=== PATIENT | male | born 1955 | race Hispanic/Latino ===

== ENCOUNTER → 2018-04-01 | Outpatient (CLI) | payer OTHER ==
[~2018-04-01] MED LIST: AEC81 PO; AMLO5TAB7 PO; CLON0.5T12 PO; CLOP75TA32 PO; HYDR-3830 PO; HYDR500C2 PO; IOHEXOL 350 MG/ML 100ML INFUS..BTL IV ONE; IOHEXOL-350 50ML VIAL IV ONE; LEVO25TA54 PO; METF-444 PO; PARO-37 PO; PROP10TA10 PO; TELM1TAB6 PO; TERB250T51 PO
== END | disposition home or self-care (01) ==
LOC: OIH 07:55
PROVIDERS: ATTEND Internal Medicine Cardiovascular Disease
DX: K57.90 Diverticulosis of intestine, part unspecified, without perforation or abscess without bleeding (principal); I70.1 Atherosclerosis of renal artery; I73.9 Peripheral vascular disease, unspecified; N32.89 Other specified disorders of bladder; M47.895 Other spondylosis, thoracolumbar region; I25.10 Atherosclerotic heart disease of native coronary artery without angina pectoris; Z89.512 Acquired absence of left leg below knee
CPT/HCPCS: 75635; Q9967 ×2

== ENCOUNTER 2018-04-12 06:21 | Day surgery (SDC) | payer OTHER ==
[2018-04-08 09:38] LABS: EOSINOPHILS % (AUTO) 2.9 % (0.0-8.0); HEMATOCRIT 28.5 % (42-54); LYMPHOCYTES % (AUTO) 21.8 % (21.0-51.0); MEAN CORPUSCULAR HEMOGLOBIN 45.5 pg (27.0-33.0); MEAN CORPUSCULAR HGB CONC 34.5 g/dL (32.0-36.0); MEAN CORPUSCULAR VOLUME 131.8 fL (79-99); NEUTROPHILS % (AUTO) 63.3 % (40.0-77.0); NUCLEATED RED BLOOD CELLS 0.2 % (0.0-0.19); PLATELET COUNT (AUTO) 269 K/uL (130-400); RED BLOOD CELL COUNT(AUTO) 2.16 MIL/uL (4.50-6.20); RED CELL DISTRIBUTION WIDTH 16.2 % (11.0-15.5); WHITE BLOOD COUNT (AUTO) 6.1 K/uL (4.8-10.8)
[2018-04-08 09:50] LABS: INR 0.98 (0.85-1.15); PARTIAL THROMBOPLASTIN TIME 28.9 SEC (26.3-35.5); PROTHROMBIN TIME 10.3 SEC (9.6-11.6)
[2018-04-08 09:51] VITALS: BP 85/62
[2018-04-08 11:30] LABS: APPEARANCE,URINE Turbid (CLEAR); BILIRUBIN,URINE Negative (NEGATIVE); COLOR,URINE Yellow (YELLOW); GLUCOSE, URINE (UA) Negative (NEGATIVE); KETONES,URINE Trace mg/dL (NEGATIVE); LEUKOCYTE ESTERASE ,URINE Moderate (NEGATIVE); NITRATE,URINE Negative (NEGATIVE); OCCULT BLOOD,URINE Negative (NEGATIVE); PROTEIN,URINE POS 1+ (NEGATIVE)
[2018-04-08 11:41] LABS: BACTERIA,URINE Few /HPF (None Seen); HYALINE CASTS, URINE 0-1 /LPF (0-1 /LPF); MUCUS,URINE Few LPF (None Seen); RBC,URINE None Seen /HPF (0-1); SQUAMOUS EPITHELIAL CELL,UR Few /HPF (0-2)
[2018-04-08 11:42] LABS: OTHER CASTS, URINE FATTY CASTS 1+ /LPF (None Seen)
[~2018-04-12] VITALS: Ht 165.1 cm; Wt 65.8 kg
[2018-04-12] VITALS (21 sets, daily range): BP systolic 104–160; BP diastolic 31–54
[~2018-04-12 06:21] MED LIST changes: -AMLO5TAB7 PO; +ATOR40TA69 PO; +CHOL500050 PO; +FERR325T22 PO; -HYDR-3830 PO; -IOHEXOL 350 MG/ML 100ML INFUS..BTL IV ONE; -IOHEXOL-350 50ML VIAL IV ONE; +METH-425 PO; +PRED2.5T PO; +PREG50 PO; -TERB250T51 PO
[2018-04-12] MEDS ORDERED: SODIUM CHLORIDE 0.9% 1000ML 1,000 ML IV ONE (08:08)
[2018-04-12] MEDS ORDERED: NITROGLYCERIN 5 MG/ML 10 ML VIAL IV ONE (09:08)
[2018-04-12] MEDS ORDERED: HEPARIN SODIUM 1000UNIT/ML 10ML VIAL ONE (09:08)
[2018-04-12] MEDS ORDERED: IODIXANOL 320 MG/ML 100 ML VIAL ONE (09:08)
[2018-04-12] MEDS ORDERED: LIDOCAINE HCL-MPF 2% 5ML VIAL ONE (09:08)
[2018-04-12] MEDS ORDERED: MIDAZOLAM HCL 1 MG/ML 2ML VIAL ONE (09:09)
[2018-04-12] MEDS ORDERED: FENTANYL CITRATE PF 50 MCG/1 ML 2ML VIAL ONE (09:09)
[2018-04-12] MEDS ORDERED: SODIUM CHLORIDE 0.9% 1000ML 1,000 ML IV SCH (10:41)
[2018-04-12] MEDS ORDERED: PROTAMINE SULFATE 10 MG/ML 25ML VIAL IV ONE (10:44)
[2018-04-12] MEDS ORDERED: DEXTROSE 50%-WATER 50 ML DISP.SYRIN IV PRN (10:45)
[2018-04-12] MEDS ORDERED: GLUCAGON 1MG KIT 1 MG ML IM PRN (10:45)
[2018-04-12] MEDS ORDERED: HYDRALAZINE HCL 20 MG/ML VIAL IV PRN (10:45)
[2018-04-12] MEDS ORDERED: INSULIN HUMULIN R 100 UNIT/ML 3ML SQ SCH (11:30)
== END 2018-04-12 15:30 | disposition home or self-care (01) ==
LOC: DAH 06:21
PROVIDERS: ATTEND Internal Medicine Cardiovascular Disease
DX: I70.211 Atherosclerosis of native arteries of extremities with intermittent claudication, right leg (principal); Z98.890 Other specified postprocedural states; Z95.5 Presence of coronary angioplasty implant and graft; I10 Essential (primary) hypertension; E11.9 Type 2 diabetes mellitus without complications; E03.9 Hypothyroidism, unspecified; G62.9 Polyneuropathy, unspecified; E11.621 Type 2 diabetes mellitus with foot ulcer; L97.419 Non-pressure chronic ulcer of right heel and midfoot with unspecified severity; L97.519 Non-pressure chronic ulcer of other part of right foot with unspecified severity; Z79.899 Other long term (current) drug therapy; Z79.84 Long term (current) use of oral hypoglycemic drugs
CPT/HCPCS: 36415 ×2; 37226; 75625; 75710; 75774; 80048; 81001; 82948 ×3; 85025; 85347; 85610; 85730; A4606; C1725; C1769 ×2; C1874; C1887; C1893; C1894 ×2; J1644 ×2; J2250; J2720; J3010; J3490 ×2; J7030; Q9967; 99156; 99157

== ENCOUNTER 2020-12-26 06:09 | Day surgery (SDC) | payer MEDICARE ==
[2020-12-24 13:20] LABS: BASOPHILS % (AUTO) 0.9 % (0.0-5.0); EOSINOPHILS % (AUTO) 16.2 % (0.0-8.0); HEMATOCRIT 33.6 % (42-54); LYMPHOCYTES % (AUTO) 15.6 % (21.0-51.0); MEAN CORPUSCULAR HEMOGLOBIN 37.7 pg (27.0-33.0); MEAN CORPUSCULAR HGB CONC 32.7 g/dL (32.0-36.0); MEAN CORPUSCULAR VOLUME 115.1 fL (79-99); MONOCYTES % (AUTO) 8.4 % (3.0-13.0); NEUTROPHILS % (AUTO) 58.6 % (40.0-77.0); PLATELET COUNT (AUTO) 236 K/uL (130-400); RED BLOOD CELL COUNT(AUTO) 2.92 MIL/uL (4.50-6.20); WHITE BLOOD COUNT (AUTO) 7.9 K/uL (4.8-10.8)
[2020-12-24 13:31] LABS: CREATININE 1.1 mg/dL (0.5-1.5); POTASSIUM 4.2 mmol/L (3.5-5.1)
[2020-12-24 13:33] LABS: INR 0.98 (0.85-1.15); PROTHROMBIN TIME 10.7 SEC (9.6-11.6)
[2020-12-24 13:34] LABS: PARTIAL THROMBOPLASTIN TIME 26.8 SEC (26.3-35.5)
[2020-12-24 13:49] LABS: APPEARANCE,URINE Clear (CLEAR); BILIRUBIN,URINE Negative (NEGATIVE); COLOR,URINE Yellow (YELLOW); GLUCOSE, URINE (UA) Negative (NEGATIVE); KETONES,URINE Negative (NEGATIVE); LEUKOCYTE ESTERASE ,URINE Negative (NEGATIVE); NITRATE,URINE Negative (NEGATIVE); OCCULT BLOOD,URINE Negative (NEGATIVE); PROTEIN,URINE Negative (NEGATIVE); UROBILINOGEN,URINE 0.2 mg/dL (0.2-1.0)
[2020-12-25 10:23] VITALS: BP 103/49
[~2020-12-26] VITALS: Ht 165.1 cm; Wt 60.9 kg
[2020-12-26] VITALS (13 sets, daily range): BP systolic 91–145; BP diastolic 31–51
[~2020-12-26 06:09] MED LIST changes: -AEC81 PO; -CHOL500050 PO; -CLON0.5T12 PO; +CLON0.5T4 PO; +CYAN100T45 PO; +DOCU100T9 PO; -METF-444 PO; -METH-425 PO; -PRED2.5T PO; -PROP10TA10 PO; +TRAM50TA4 PO
[2020-12-26] MEDS ORDERED: 0.9%NACL 1000ML 1,000 ML IV ONE (06:26)
[2020-12-26] MEDS ORDERED: HEPARIN 1,000 UNIT VIAL ONE (07:20)
[2020-12-26] MEDS ORDERED: IOHEXOL-350 50ML VIAL IV ONE (07:20)
[2020-12-26] MEDS ORDERED: HEPARIN 10,000 UNIT/10ML (1,000 UNIT/ML) VIAL ONE (07:20)
[2020-12-26] MEDS ORDERED: IOHEXOL 350 MG/ML 100ML INFUS..BTL IV ONE (07:20)
[2020-12-26] MEDS ORDERED: LIDOCAINE HCL 400MG/20ML VIAL ONE (07:21)
[2020-12-26] MEDS ORDERED: 0.9%NACL 10ML VIAL IVP SCH (09:00)
== END 2020-12-26 17:50 | disposition home or self-care (01) ==
LOC: DAH 06:09
PROVIDERS: ATTEND Internal Medicine Cardiovascular Disease
DX: I35.0 Nonrheumatic aortic (valve) stenosis (principal); I20.9 Angina pectoris, unspecified; E78.00 Pure hypercholesterolemia, unspecified; Z79.01 Long term (current) use of anticoagulants; Z83.3 Family history of diabetes mellitus; Z79.899 Other long term (current) drug therapy
CPT/HCPCS: 36415; 71045; 80048; 81003; 85025; 85610; 85730; 93005; 93306; 93356; 93460; 93880; 94010; A4215; A4216; A4221; A4222; A4223 ×3; A4606; A4663; C1769 ×2; C1894 ×4; J1644 ×2; J3490; J7030; Q9965; Q9967 ×2

== ENCOUNTER → 2021-01-03 | Outpatient (CLI) | payer OTHER, MEDICARE ==
[~2021-01-03] VITALS: Ht 165.1 cm; Wt 59.9 kg
[~2021-01-03] MED LIST changes: +CEFAZOLIN SODIUM 1 GM VIAL IVP ONE; +DIPH25CA53 PO; +VITAMIN B12 PO
[2021-01-03 15:07] LABS: BASOPHILS % (AUTO) 1.6 % (0.0-5.0); EOSINOPHILS % (AUTO) 16.8 % (0.0-8.0); HEMATOCRIT 32.1 % (42-54); LYMPHOCYTES % (AUTO) 22.8 % (21.0-51.0); MEAN CORPUSCULAR HEMOGLOBIN 37.7 pg (27.0-33.0); MEAN CORPUSCULAR VOLUME 114.2 fL (79-99); MONOCYTES % (AUTO) 5.9 % (3.0-13.0); NEUTROPHILS % (AUTO) 52.8 % (40.0-77.0); PLATELET COUNT (AUTO) 259 K/uL (130-400); RED BLOOD CELL COUNT(AUTO) 2.81 MIL/uL (4.50-6.20); RED CELL DISTRIBUTION WIDTH 12.4 % (11.0-15.5); WHITE BLOOD COUNT (AUTO) 6.8 K/uL (4.8-10.8)
[2021-01-03 15:19] LABS: HEMOGLOBIN A1C 4.5 % (4.0-6.0)
[2021-01-03 15:22] LABS: ALBUMIN 3.2 g/dL (3.5-5.0); BILIRUBIN,TOTAL 0.2 mg/dL (0.2-1.0); CREATININE 1.1 mg/dL (0.5-1.5); POTASSIUM 3.7 mmol/L (3.5-5.1)
[2021-01-03 15:23] LABS: PROTHROMBIN TIME 10.9 SEC (9.6-11.6)
[2021-01-03 15:24] LABS: PARTIAL THROMBOPLASTIN TIME 26.6 SEC (26.3-35.5)
[2021-01-09 08:59] VITALS: BP 93/40
== END | disposition home or self-care (01) ==
LOC: DAH 10:00 → EDSTATUS 13:00
PROVIDERS: ATTEND Thoracic Surgery (Cardiothoracic Vascular Surgery)
DX: I35.0 Nonrheumatic aortic (valve) stenosis (principal); R00.1 Bradycardia, unspecified; Z20.822 Contact with and (suspected) exposure to COVID-19; Z79.899 Other long term (current) drug therapy; Z79.01 Long term (current) use of anticoagulants
CPT/HCPCS: 36415; 71046; 80053; 80061; 83036; 85025; 85610; 85730; 86850; 86900; 86901; 87635; 93005

== ENCOUNTER 2021-10-29 11:59 | Inpatient (IN) | payer OTHER, MEDICARE ==
[~2021-10-29] VITALS: Ht 160 cm; Wt 59.0 kg
[2021-10-29] MEDS: 0.9%NACL 1000ML 1,000 ML IV SCH (05:35)
[~2021-10-29 11:59] MED LIST changes: -CEFAZOLIN SODIUM 1 GM VIAL IVP ONE; -CYAN100T45 PO
[2021-10-29 12:47] LABS: BASOPHILS % (AUTO) 0.1 % (0.0-5.0); HEMATOCRIT 26.3 % (42-54); LYMPHOCYTES % (AUTO) 14.9 % (21.0-51.0); MEAN CORPUSCULAR HEMOGLOBIN 38.2 pg (27.0-33.0); MEAN CORPUSCULAR HGB CONC 31.6 g/dL (32.0-36.0); MEAN CORPUSCULAR VOLUME 121.2 fL (79-99); NEUTROPHILS % (AUTO) 77.1 % (40.0-77.0); NUCLEATED RED BLOOD CELLS 0.6 % (0.0-0.19); PLATELET COUNT (AUTO) 149 K/uL (130-400); RED BLOOD CELL COUNT(AUTO) 2.17 MIL/uL (4.50-6.20); RED CELL DISTRIBUTION WIDTH 13.9 % (11.0-15.5); WHITE BLOOD COUNT (AUTO) 17.4 K/uL (4.8-10.8)
[2021-10-29 12:57] LABS: INR 1.03 (0.85-1.15); PROTHROMBIN TIME 11.2 SEC (9.6-11.6)
[2021-10-29 13:08] LABS: ALBUMIN 2.8 g/dL (3.5-5.0); BILIRUBIN,TOTAL 0.6 mg/dL (0.2-1.0); CREATININE 2.1 mg/dL (0.5-1.5); POTASSIUM 4.2 mmol/L (3.5-5.1)
[2021-10-29] MEDS ORDERED: 0.9%NACL 1000ML 1,000 ML IV ONE ×2 (13:30→14:00)
[2021-10-29] MEDS ORDERED: ZOSYN 3.375GM +NS 50ML IV SCH (13:30)
[2021-10-29] MEDS ORDERED: IOHEXOL 350 MG/ML 100ML INFUS..BTL IV ONE (14:23)
[2021-10-29] MEDS ORDERED: ASPI-1005 PO (15:17)
[2021-10-29] MEDS ORDERED: ALEN70TA80 PO (15:17)
[2021-10-29] MEDS ORDERED: RIVA2.5T PO (15:17)
[2021-10-29] MEDS ORDERED: METO25TA6 PO (15:17)
[2021-10-29 15:59] LABS: APPEARANCE,URINE Clear (CLEAR); BILIRUBIN,URINE Negative (NEGATIVE); COLOR,URINE Yellow (YELLOW); GLUCOSE, URINE (UA) Negative (NEGATIVE); KETONES,URINE Negative (NEGATIVE); LEUKOCYTE ESTERASE ,URINE Negative (NEGATIVE); NITRATE,URINE Negative (NEGATIVE); OCCULT BLOOD,URINE Negative (NEGATIVE); PH,URINE 5.5 (5.0-8.0); PROTEIN,URINE POS 1+ mg/dL (NEGATIVE); UROBILINOGEN,URINE 0.2 mg/dL (0.2-1.0)
[2021-10-29 16:13] LABS: BACTERIA,URINE Few /HPF (None Seen); RBC,URINE 0-1 /HPF (0-1); WBC,URINE 0-1 /HPF (0-1)
[2021-10-29] MEDS: CYANOCOBALAMIN (VITAMIN B-12) 1,000 MCG TABLET PO SCH (21:00)
[2021-10-29] MEDS ORDERED: BISACODYL 5 MG TABLET.DR PO PRN (21:00)
[2021-10-29] MEDS: PREGABALIN 25 MG CAP PO SCH (21:00)
[2021-10-29] MEDS ORDERED: ONDANSETRON 4MG INJ IV PRN (21:00)
[2021-10-29] MEDS: METOPROLOL TARTRATE 25 MG TAB PO SCH (21:00)
[2021-10-29] MEDS: CLONAZEPAM 0.5 MG TABLET PO SCH (21:00)
[2021-10-29] MEDS ORDERED: ACETAMINOPHEN 325 MG TAB PO PRN ×2 (21:00)
[2021-10-29 21:21] LABS: HEMATOCRIT 20.5 % (42-54)
[2021-10-29 21:25] LABS: RETICULOCYTE % (AUTO) 4.08 % (0.42-2.23)
[2021-10-29 21:32] LABS: % IRON SATURATION 59.4 % (30-44); INR 1.07 (0.85-1.15); PROTHROMBIN TIME 11.6 SEC (9.6-11.6)
[2021-10-29 21:33] LABS: PARTIAL THROMBOPLASTIN TIME 31.2 SEC (26.3-35.5)
[2021-10-29 21:56] LABS: THYROID STIMULATING HORMONE 0.25 uIU/mL (0.36-3.74)
[2021-10-30] VITALS (8 sets, daily range): BP systolic 135–155; BP diastolic 41–80
[2021-10-30 01:33] LABS: HEMATOCRIT 32.4 % (42-54)
[2021-10-30] MEDS: LEVOTHYROXINE 25 MCG TABLET PO SCH (05:35)
[2021-10-30 07:19] LABS: BASOPHILS % (AUTO) 0.1 % (0.0-5.0); EOSINOPHILS % (AUTO) 0.2 % (0.0-8.0); HEMATOCRIT 32.3 % (42-54); LYMPHOCYTES % (AUTO) 7.9 % (21.0-51.0); MEAN CORPUSCULAR HEMOGLOBIN 34.1 pg (27.0-33.0); MEAN CORPUSCULAR HGB CONC 33.7 g/dL (32.0-36.0); MEAN CORPUSCULAR VOLUME 100.9 fL (79-99); MONOCYTES % (AUTO) 7.2 % (3.0-13.0); NEUTROPHILS % (AUTO) 83.4 % (40.0-77.0); NUCLEATED RED BLOOD CELLS 1.2 % (0.0-0.19); PLATELET COUNT (AUTO) 105 K/uL (130-400); RED CELL DISTRIBUTION WIDTH 22.2 % (11.0-15.5)
[2021-10-30 07:29] LABS: MAGNESIUM 1.7 mg/dL (1.80-2.40); POTASSIUM 3.3 mmol/L (3.5-5.1)
[2021-10-30] MEDS ORDERED: HYDROXYUREA 500 MG CAP PO SCH (09:00)
[2021-10-30] MEDS ORDERED: PANTOPRAZOLE 40 MG TAB DR PO SCH (09:00)
[2021-10-30] MEDS ORDERED: IRON SUCROSE COMPLEX 100 MG/5 ML VIAL IVP SCH (09:00)
[2021-10-30] MEDS ORDERED: CLOPIDOGREL 75MG TAB PO SCH (09:00)
[2021-10-30] MEDS: CLONAZEPAM 0.5 MG TABLET PO SCH ×2 (09:00→21:36)
[2021-10-30] MEDS ORDERED: POTASSIUM CHLORIDE 10% ELIXIR 20 MEQ/15 ML UDCUP PO ONE (09:00)
[2021-10-30] MEDS ORDERED: ATORVASTATIN 40 MG TABLET PO SCH (09:00)
[2021-10-30] MEDS ORDERED: ASPIRIN 81MG CHEW TAB PO SCH (09:00)
[2021-10-30] MEDS ORDERED: IRON SUCROSE COMPLEX 100 MG in 0.9%NACL 50ML 50 ML IV SCH (09:00)
[2021-10-30] MEDS ORDERED: MAGNESIUM 2GM PREMIX 50ML 50 ML IV PRN (09:00)
[2021-10-30] MEDS: METOPROLOL TARTRATE 25 MG TAB PO SCH ×2 (09:10→21:36)
[2021-10-30] MEDS: CYANOCOBALAMIN (VITAMIN B-12) 1,000 MCG TABLET PO SCH ×2 (09:11→21:35)
[2021-10-30] MEDS: PREGABALIN 25 MG CAP PO SCH ×3 (09:11→21:36)
[2021-10-30] MEDS: NEUTRA-PHOS PACKET 1 EACH PO SCH ×4 (09:32→21:35)
[2021-10-30] MEDS: 0.9%NACL 1000ML 1,000 ML IV SCH ×2 (09:53→17:02)
[2021-10-30 11:11] LABS: HEMATOCRIT 29.8 % (42-54)
[2021-10-30 15:24] LABS: HEMATOCRIT 29.1 % (42-54)
[2021-10-30] MEDS ORDERED: GLUCAGON 1MG KIT 1 MG ML IM PRN (18:00)
[2021-10-30] MEDS ORDERED: DEXTROSE 50%-WATER 50 ML DISP.SYRIN IV PRN (18:00)
[2021-10-30 20:02] LABS: HEMATOCRIT 26.9 % (42-54)
[2021-10-30 22:42] LABS: HEMATOCRIT 27.7 % (42-54)
[2021-10-31] VITALS: BP 120/40
[2021-10-31] MEDS: 0.9%NACL 1000ML 1,000 ML IV SCH ×2 (03:00→04:19)
[2021-10-31 04:00] VITALS: BP 148/60
[2021-10-31] MEDS: LEVOTHYROXINE 25 MCG TABLET PO SCH (05:17)
[2021-10-31 06:01] LABS: HEMATOCRIT 28.9 % (42-54)
[2021-10-31 06:25] LABS: PHOSPHORUS 1.8 mg/dL (2.5-4.9)
[2021-10-31 06:37] LABS: POTASSIUM 2.9 mmol/L (3.5-5.1)
[2021-10-31 07:20] VITALS: BP 145/30
[2021-10-31] MEDS ORDERED: POTASSIUM CHLORIDE 20MEQ/100ML 100 ML IV PRN (08:00)
[2021-10-31] MEDS ORDERED: POTASSIUM CHLORIDE 10% ELIXIR 20 MEQ/15 ML UDCUP PO SCH (08:00)
[2021-10-31] MEDS ORDERED: POTASSIUM CHLORIDE 10% ELIXIR 20 MEQ/15 ML UDCUP PO PRN (08:00)
[2021-10-31] MEDS ORDERED: LIDOCAINE HCL-MPF 1% 2ML VIAL IV PRN (08:00)
[2021-10-31] MEDS ORDERED: KCL 20 MEQ ERTAB PO PRN (08:00)
== END 2021-10-31 10:57 | disposition left against medical advice (07) | DRG 920 ==
LOC: EDH 11:59 → EDHIP 20:41 → 4CH 10-30 19:27
PROVIDERS: ADMIT Internal Medicine; ATTEND Internal Medicine
PROC: 30233N1 Transfusion of Nonautologous Red Blood Cells into Peripheral Vein, Percutaneous Approach (ICD-10-PCS; principal; 2021-10-29)
DX: I97.638 Postprocedural hematoma of a circulatory system organ or structure following other circulatory system procedure (principal); D62 Acute posthemorrhagic anemia; N17.9 Acute kidney failure, unspecified; E11.51 Type 2 diabetes mellitus with diabetic peripheral angiopathy without gangrene; E78.5 Hyperlipidemia, unspecified; Z20.822 Contact with and (suspected) exposure to COVID-19; Z53.29 Procedure and treatment not carried out because of patient's decision for other reasons; Z89.612 Acquired absence of left leg above knee; Z82.5 Family history of asthma and other chronic lower respiratory diseases; Z83.3 Family history of diabetes mellitus; Z82.3 Family history of stroke; Z82.0 Family history of epilepsy and other diseases of the nervous system; Z82.49 Family history of ischemic heart disease and other diseases of the circulatory system; Z99.2 Dependence on renal dialysis; Z95.3 Presence of xenogenic heart valve; Y83.8 Other surgical procedures as the cause of abnormal reaction of the patient, or of later complication, without mention of misadventure at the time of the procedure; Y82.8 Other medical devices associated with adverse incidents
CPT/HCPCS: 36415; 74177; 76882; 80048; 80053; 81001; 82607; 82728; 82746; 82948; 83540; 83550; 83605; 83735; 84100; 84132; 84145; 84443; 85014; 85018; 85025; 85045; 85610; 85730; 86850; 86900; 86901; 86923; 87040; 87088; 87635; 93005; 99291; G0378; J1756; J2543; J3475; J7030; P9016; Q9967

== ENCOUNTER 2022-05-14 07:44 | Observation (INO) | payer OTHER, MEDICARE ==
[2022-05-14] VITALS (11 sets, daily range): BP systolic 111–156; BP diastolic 43–77
[~2022-05-14 07:44] MED LIST changes: +AEC81 PO; -CLOP75TA32 PO; -DOCU100T9 PO; +FERR-72 PO; -FERR325T22 PO; +METO25TA6 PO; -PARO-37 PO; +PARO30TA60 PO; +RIVA2.5T PO; -TELM1TAB6 PO
[2022-05-14] MEDS ORDERED: 0.9%NACL 1000ML 1,000 ML IV ONE (08:23)
[2022-05-14 08:55] LABS: BASOPHILS % (AUTO) 1.1 % (0.0-5.0); EOSINOPHILS % (AUTO) 16.9 % (0.0-8.0); HEMATOCRIT 41.8 % (42-54); LYMPHOCYTES % (AUTO) 19.7 % (21.0-51.0); MEAN CORPUSCULAR HEMOGLOBIN 34.9 pg (27.0-33.0); MEAN CORPUSCULAR HGB CONC 31.1 g/dL (32.0-36.0); MEAN CORPUSCULAR VOLUME 112.4 fL (79-99); MONOCYTES % (AUTO) 9.3 % (3.0-13.0); NEUTROPHILS % (AUTO) 52.4 % (40.0-77.0); PLATELET COUNT (AUTO) 283 K/uL (130-400); RED BLOOD CELL COUNT(AUTO) 3.72 MIL/uL (4.50-6.20); RED CELL DISTRIBUTION WIDTH 12.9 % (11.0-15.5); WHITE BLOOD COUNT (AUTO) 10.2 K/uL (4.8-10.8)
[2022-05-14 09:13] LABS: CREATININE 1.2 mg/dL (0.5-1.5); POTASSIUM 4.6 mmol/L (3.5-5.1)
[2022-05-14 09:20] LABS: INR 0.98 (0.85-1.15); PROTHROMBIN TIME 10.7 SEC (9.6-11.6)
[2022-05-14 09:22] LABS: PARTIAL THROMBOPLASTIN TIME 27.3 SEC (26.3-35.5)
[2022-05-14 09:47] LABS: B-TYPE NATRIURETIC PEPTIDE 44 pg/mL (0-100)
[2022-05-14] MEDS ORDERED: IODIXANOL 320 MG/ML 100 ML VIAL ONE (10:02)
[2022-05-14] MEDS ORDERED: HEPARIN 10,000 UNIT/10ML (1,000 UNIT/ML) VIAL ONE (10:02)
[2022-05-14] MEDS ORDERED: MIDAZOLAM HCL 1 MG/ML 2ML VIAL ONE (10:03)
[2022-05-14] MEDS ORDERED: LIDOCAINE HCL 400MG/20ML VIAL ONE (10:03)
[2022-05-14] MEDS ORDERED: FENTANYL CITRATE PF 50 MCG/1 ML 2ML VIAL ONE (10:03)
[2022-05-14] MEDS ORDERED: CLOPIDOGREL 300MG TAB ONE (11:22)
[2022-05-14] MEDS ORDERED: GLUCAGON 1MG KIT 1 MG ML IM PRN (11:30)
[2022-05-14] MEDS ORDERED: NITROGLYCERIN 0.4 MG SL TAB SL PRN (11:30)
[2022-05-14] MEDS ORDERED: 0.9%NACL 1000ML 1,000 ML IV SCH (11:30)
[2022-05-14] MEDS ORDERED: HYDRALAZINE 20MG/ML VIAL IV PRN (11:30)
[2022-05-14] MEDS ORDERED: DEXTROSE 50%-WATER 50 ML DISP.SYRIN IV PRN (11:30)
[2022-05-14] MEDS: INSULIN HUMULIN R 100 UNIT/ML 3ML SQ SCH ×3 (11:30→20:32)
[2022-05-14] MEDS ORDERED: ONDANSETRON 4MG INJ IVP PRN (14:30)
[2022-05-14] MEDS ORDERED: ACETAMINOPHEN 325 MG TAB PO PRN (14:30)
[2022-05-14] MEDS ORDERED: TRAMADOL HCL 50 MG TABLET PO PRN (18:00)
[2022-05-14] MEDS: CYANOCOBALAMIN (VITAMIN B-12) 1,000 MCG TABLET PO SCH (20:34)
[2022-05-14] MEDS: PAROXETINE HCL 20 MG TABLET PO SCH (20:35)
[2022-05-14] MEDS: CLONAZEPAM 0.5 MG TABLET PO SCH (20:35)
[2022-05-14] MEDS ORDERED: PAROXETINE HCL 20 MG TABLET PO SCH (21:00)
[2022-05-14] MEDS ORDERED: CLONAZEPAM 1MG TAB PO SCH (21:00)
[2022-05-14] MEDS ORDERED: FAMOTIDINE 20MG TAB PO SCH (21:00)
[2022-05-14] MEDS: DIPHENHYDRAMINE HCL 25 MG CAPSULE PO SCH (21:12)
[2022-05-14] MEDS: PREGABALIN 25 MG CAP PO SCH (21:12)
[2022-05-14] MEDS: METOPROLOL TARTRATE 25 MG TAB PO SCH (21:13)
[2022-05-14] MEDS: RIVAROXABAN 2.5 MG TABLET PO SCH (21:13)
[2022-05-15] VITALS: BP 154/57
[2022-05-15 00:13] VITALS: BP 190/98
[2022-05-15 04:00] VITALS: BP 155/68
[2022-05-15 05:04] LABS: BASOPHILS % (AUTO) 0.7 % (0.0-5.0); EOSINOPHILS % (AUTO) 13.1 % (0.0-8.0); HEMATOCRIT 36.2 % (42-54); MEAN CORPUSCULAR HEMOGLOBIN 34.9 pg (27.0-33.0); MEAN CORPUSCULAR HGB CONC 32.9 g/dL (32.0-36.0); MEAN CORPUSCULAR VOLUME 106.2 fL (79-99); MONOCYTES % (AUTO) 8.7 % (3.0-13.0); NEUTROPHILS % (AUTO) 64.1 % (40.0-77.0); PLATELET COUNT (AUTO) 220 K/uL (130-400); RED BLOOD CELL COUNT(AUTO) 3.41 MIL/uL (4.50-6.20); RED CELL DISTRIBUTION WIDTH 12.4 % (11.0-15.5)
[2022-05-15 05:18] LABS: ALBUMIN 2.8 g/dL (3.5-5.0); CREATININE 1.1 mg/dL (0.5-1.5); MAGNESIUM 1.9 mg/dL (1.80-2.40); POTASSIUM 3.9 mmol/L (3.5-5.1); TOTAL PROTEIN, SERUM 6.4 g/dL (6.0-8.3)
[2022-05-15] MEDS: INSULIN HUMULIN R 100 UNIT/ML 3ML SQ SCH (05:47)
[2022-05-15] MEDS ORDERED: LEVOTHYROXINE 25 MCG TABLET PO SCH ×2 (06:30)
[2022-05-15 08:00] VITALS: BP 121/59
[2022-05-15] MEDS: PAROXETINE HCL 20 MG TABLET PO SCH (08:53)
[2022-05-15] MEDS: PREGABALIN 25 MG CAP PO SCH (08:54)
[2022-05-15] MEDS: RIVAROXABAN 2.5 MG TABLET PO SCH (08:54)
[2022-05-15] MEDS: CYANOCOBALAMIN (VITAMIN B-12) 1,000 MCG TABLET PO SCH (08:54)
[2022-05-15] MEDS: DIPHENHYDRAMINE HCL 25 MG CAPSULE PO SCH (08:55)
[2022-05-15] MEDS: METOPROLOL TARTRATE 25 MG TAB PO SCH (08:55)
[2022-05-15] MEDS: CLONAZEPAM 0.5 MG TABLET PO SCH (08:55)
[2022-05-15] MEDS ORDERED: CLOPIDOGREL 75MG TAB PO SCH (09:00)
[2022-05-15] MEDS ORDERED: HYDROXYUREA 500 MG CAP PO SCH (09:00)
[2022-05-15] MEDS ORDERED: ATORVASTATIN 10 MG TABLET PO SCH (09:00)
[2022-05-15] MEDS ORDERED: FERROUS SULFATE 325 MG TABLET.DR PO SCH (09:00)
[2022-05-15] MEDS ORDERED: ASPIRIN 81 MG EC TAB PO SCH (09:00)
[2022-05-15 12:00] VITALS: BP 128/46
== END 2022-05-15 12:13 | disposition home or self-care (01) ==
LOC: DAH 07:44 → DAHIP 07:45 → 4CH 12:05
PROVIDERS: ADMIT Hospitalist; ATTEND Hospitalist
DX: I73.9 Peripheral vascular disease, unspecified (principal); I82.422 Acute embolism and thrombosis of left iliac vein; E11.51 Type 2 diabetes mellitus with diabetic peripheral angiopathy without gangrene; E03.9 Hypothyroidism, unspecified; F41.9 Anxiety disorder, unspecified; I10 Essential (primary) hypertension; Z79.899 Other long term (current) drug therapy; Z79.82 Long term (current) use of aspirin; Z95.2 Presence of prosthetic heart valve; Z89.511 Acquired absence of right leg below knee
CPT/HCPCS: 37238; 36012; 75822; 37252; 37253 ×4; 80048; 83880; 85025 ×2; 85610; 85730; 82948 ×4; 36415 ×2; 83735; 80053; C1876; C1725; C1894 ×2; C1753; C1769; G0378 ×24; J3010; J3490; J7030; Q0163 ×2; J1644 ×2; J2250; Q9967; A4215; A4223 ×3; A4222; A4221; A4663; A4216; A4606; 99156; 99157